=== PATIENT | male | born 2000 | race Caucasian/White ===

== ENCOUNTER 2018-10-10 12:03 | Emergency (ER) | payer BC ==
[2018-10-10] MEDS ORDERED: Morphine 4 MG/ML VIAL ONE (13:13)
--- NOTE | 2018-10-10 13:29 | RAD ---
LEFT KNEE 3 VIEWS: HISTORY: Walking today and felt a pop. FINDINGS: The patient has a distracted patellar fracture. The fracture appears slightly comminuted. There is a superior fragment which involves slightly greater than a third of the patella. It is distracted by approximately 2.2 cm. There also appears to be a fracture near the junction of the inferior and mid dle thirds of the patella. IMPRESSION: 1. Evidence of previous anterior cruciate ligament repair. 2. Distracted patellar fracture. POS: [facility]
== END 2018-10-10 13:51 | disposition home or self-care (01) ==
LOC: ERS 12:03
DX: S82.042A Displaced comminuted fracture of left patella, initial encounter for closed fracture (principal); W01.0XXA Fall on same level from slipping, tripping and stumbling without subsequent striking against object, initial encounter
CPT/HCPCS: 96374; J2270